=== PATIENT | female | born 1940 | race Caucasian/White ===

== ENCOUNTER 2017-12-11 08:20 | Day surgery (SDC) | payer MEDICARE ==
[2017-12-11] MEDS ORDERED: Lactated Ringer's 500 ML IV ONE (08:40)
[2017-12-11] MEDS ORDERED: Propofol 10 mg/ml Inj (20 ML) ONE (10:56)
[2017-12-11 11:30] VITALS: TEMP 97
[2017-12-11 11:47] VITALS: BP 130/59; PULSE 63; RESP 14; O2SAT 100
== END 2017-12-11 13:34 | disposition home or self-care (01) ==
LOC: H.ENDO 08:20
PROVIDERS: ATTEND Internal Medicine Gastroenterology
DX: Z12.11 Encounter for screening for malignant neoplasm of colon (principal); K57.30 Diverticulosis of large intestine without perforation or abscess without bleeding; K64.8 Other hemorrhoids; K59.09 Other constipation; I10 Essential (primary) hypertension
CPT/HCPCS: 45378; J2001; J2704; J7120